=== PATIENT | male | born 1960 ===

== ENCOUNTER 2022-01-15 18:03 | Emergency (ER) | payer SELFPAY ==
[~2022-01-15] VITALS: Ht 167.6 cm; Wt 70.3 kg
[2022-01-15] MEDS ORDERED: CEPH500 PO (19:40)
== END 2022-01-15 20:06 | disposition home or self-care (01) ==
LOC: ER 18:03
DX: U07.1 COVID-19 (principal); S70.362D Insect bite (nonvenomous), left thigh, subsequent encounter; I10 Essential (primary) hypertension; W57.XXXD Bitten or stung by nonvenomous insect and other nonvenomous arthropods, subsequent encounter
CPT/HCPCS: 99283-25; M0222